=== PATIENT | female | born 1975 | race American Indian/Alaskan Native ===

== ENCOUNTER 2016-12-08 01:47 | Emergency (ER) | payer OTHER ==
[2016-12-08 02:23] VITALS: BMI 37.8
[2016-12-08 02:30] VITALS: O2SAT 99
--- NOTE | 2016-12-08 02:44 | ED PDOC ---
Arrival/HPI - General Chief Complaint: Abdominal Pain Time Seen by Provider: 12/08/16 02:40 Historian: Patient - History of Present Illness Narrative History of Present Illness (Text): 12/08/16 02:44 Jana Bethea is a 41 year old female who presents to the ED complaining of RLQ pain for 1 day. Patient states she has a history of ectopic in the past and notes she is currently . Patient denies any fever, chills, chest pain, shortness of breath, nausea, vomiting, diarrhea, urinary symptoms, back pain, neck pain, headache, dizziness, or any other complaints. Time/Duration: Other (tonight) Symptom Onset: Gradual Symptom Course: Unchanged Activities at Onset: Rest, Light Context: Home Past Medical History - Provider Review Nursing Documentation Reviewed: Yes - Infectious Disease Hx of Infectious Diseases: None - Tetanus Immunization Tetanus Immunization: Unknown - Cardiac Hx Hypertension: Yes - Pulmonary Hx Asthma: Yes - Neurological Hx Neurological Disorder: No - HEENT Hx HEENT Disorder: No - Renal Hx Renal Disorder: No - Endocrine/Metabolic Hx Endocrine Disorders: No - Hematological/Oncological Hx Blood Disorders: No - Integumentary Hx Dermatological Disorder: No - Musculoskeletal/Rheumatological Hx Musculoskeletal Disorders: No - Gastrointestinal Hx Gastrointestinal Disorders: No - Genitourinary/Gynecological Hx Genitourinary Disorders: No - Psychiatric Hx Depression: No Hx Emotional Abuse: No Hx Physical Abuse: No Hx Substance Use: No - Surgical History Hx Section: Yes Other/Comment: ectopic 2000 - Anesthesia Hx Anesthesia: Yes Hx Anesthesia Reactions: No Hx Malignant Hyperthermia: No - Suicidal Assessment Feels Threatened In Home Enviroment: No Family/Social History - Physician Review Nursing Documentation Reviewed: Yes Family/Social History: No Known Family HX Smoking Status: Current Some Days Smoker Hx Alcohol Use: No Hx Substance Use: No Hx Substance Use Treatment: No Allergies/Home Meds Allergies/Adverse Reactions: Allergies penicillin G Allergy (Verified 12/08/16 02:14) ANAPHYLAXIS season allergies Allergy (Mild, Uncoded 12/08/16 02:14) CONGESTION Home Medications: Home Meds Medication Instructions Recorded Confirmed Albuterol/Ipratropium [Combivent 1 puff INH PRN PRN 12/08/16 12/08/16 Respimat] Review of Systems - Physician Review All systems were reviewed & negative as marked: Yes - Review of Systems Constitutional: Normal. absent: Fevers Eyes: Normal ENT: Normal Respiratory: Normal. absent: SOB, Cough Cardiovascular: Chest Pain Gastrointestinal: Nausea, Vomiting. absent: Abdominal Pain, Diarrhea Genitourinary Female: Normal. absent: Dysuria, Frequency, Hematuria, Urine Output Changes Musculoskeletal: Normal. absent: Back Pain, Neck Pain Skin: Normal. absent: Rash Neurological: Normal. absent: Headache, Dizziness Endocrine: Normal Hemo/Lymphatic: Normal Psychiatric: Normal Physical Exam Vital Signs Reviewed: Yes Vital Signs Temp Pulse Resp BP Pulse Ox 12/08/16 04:34 98 F 78 18 121/70 99 12/08/16 02:27 98.5 F 95 H 16 111/76 99 Temperature: Afebrile Blood Pressure: Normal Pulse: Regular Respiratory Rate: Normal Appearance: Positive for: Well-Appearing, Non-Toxic, Comfortable Pain Distress: None Mental Status: Positive for: Alert and Oriented X 3 - Systems Exam Head: Present: Atraumatic, Normocephalic Pupils: Present: PERRL Extroacular Muscles: Present: EOMI Conjunctiva: Present: Normal Mouth: Present: Moist Mucous Membranes Neck: Present: Normal Range of Motion Respiratory/Chest: Present: Clear to Auscultation, Good Air Exchange. No: Respiratory Distress, Accessory Muscle Use Cardiovascular: Present: Regular Rate and Rhythm, Normal S1, S2. No: Murmurs Abdomen: Present: Normal Bowel Sounds. No: Tenderness, Distention, Peritoneal Signs Back: Present: Normal Inspection Upper Extremity: Present: Normal Inspection. No: Cyanosis, Edema Lower Extremity: Present: Normal Inspection. No: Edema Neurological: Present: GCS=15, CN II-XII Intact, Speech Normal Skin: Present: Warm, Dry, Normal Color. No: Rashes Psychiatric: Present: Alert, Oriented x 3, Normal Insight, Normal Concentration Medical Decision Making ED Course and Treatment: 12/08/16 02:44 Impression: 41 year old female complaining of RLQ pain tonight. Plan: -- Labs, beta-HCG, blood type and screen -- Urinalysis -- Transvaginal US -- Reassess and disposition Progress Notes: 12/08/16 04:28 Reviewed sono, Transvaginal US shows: Gestation: Questionable tiny saclike structure vs fluid about endometrium. No yolk sac. No pole. Uterus/cervix: Endometrium: 2.4 cm in thickness. Closed cervix. Ovaries: RIGHT ovary: 1.3 x 1.4 x 1.2 cm anechoic lesion. LEFT ovary: 2.2 x 2.5 x 1.4 cm anechoic lesion. No adnexal masses. Free fluid: No significant free fluid. IMPRESSION: 1. Sac without pole or yolk sac. DDX: Early IUP, blighted ovum, ectopic . 2. Ovarian cysts. 3. Incidental/non-acute findings are described above. 12/08/16 04:44 On re-evaluation, the patient feels better and is in no acute distress. I have discussed the results and plan with the patient, who expresses understanding. 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 Patient was instructed to follow up with OBGYN/clinic in 1-2 days or return if symptoms worsen or new concerning symptoms arise. 12/08/16 20:01 Re-evaluation Time: 05:02 Reassessment Condition: Re-examined, Improved - Lab Interpretations Lab Results: 12/08/16 03:20 12/08/16 03:20 Lab Results 12/08/16 03:20: WBC 10.4 D, RBC 4.21, Hgb 12.9, Hct 37.3, MCV 88.6, MCH 30.6, MCHC 34.6, RDW 12.6, Plt Count 344, MPV 9.5, Gran % 53.1, Lymph % (Auto) 37.4 H , Gonzales % (Auto) 6.4 H, Eos % (Auto) 2.7, Baso % (Auto) 0.4, Gran # 5.52, Lymph # 3.9 H, Gonzales # 0.7 H, Eos # 0.3, Baso # 0.04, PT 10.0, INR 0.93, APTT 29.8, Sodium 138, Potassium 3.1 L, Chloride 98, Carbon Dioxide 30, Anion Gap 13, BUN 8 , Creatinine 0.6, Est GFR ( Amer) > 60, Est GFR (Non-Af Amer) > 60, Random Glucose 125 H, Calcium 9.2, Total Bilirubin 0.4, AST 23, ALT 17, Alkaline Phosphatase 56, Total Protein 7.4, Albumin 3.9, Globulin 3.4, Albumin/ Globulin Ratio 1.1, Beta HCG, Quant 1176.90 H, Blood Type O NEGATIVE, Antibody Screen Negative, BBK History Checked No verified bt 12/08/16 02:45: Urine Color Yellow, Urine Appearance Clear, Urine pH 6.0, Ur Specific Sisters >= 1.030, Urine Protein Negative, Urine Glucose (UA) Negative, Urine Ketones Negative, Urine Blood Negative, Urine Nitrate Negative, Urine Bilirubin Negative, Urine Urobilinogen 1.0 H, Ur Leukocyte Esterase Negative, Urine HCG, Qual Positive I have reviewed the lab results: Yes - RAD Interpretation Radiology Orders: 12/08/16 02:48 TRANSVAGINAL [US] Stat - Scribe Statement The provider has reviewed the documentation as recorded by the Caroline Silver Provider Attestation: All medical record entries made by the Scribe were at my direction and personally dictated by me. I have reviewed the chart and agree that the record accurately reflects my personal performance of the history, physical exam, medical decision making, and the department course for this patient. I have also personally directed, reviewed, and agree with the discharge instructions and disposition. Disposition/Present on Arrival - Present on Arrival Any Indicators Present on Arrival: No History of DVT/PE: No History of Uncontrolled Diabetes: No Urinary Catheter: No History of Decub. Ulcer: No History Surgical Site Infection Following: None - Disposition Have Diagnosis and Disposition been Completed?: Yes Diagnosis: Ovarian cyst, Abdominal pain, Ectopic Disposition: HOME/ ROUTINE Disposition Time: 05:02 Condition: GOOD Discharge Instructions (ExitCare): Acute Abdominal Pain (ED), Ectopic (ED) Additional Instructions: follow up with your junior bookkeeper on friday or return to ed fro repeat beta and us Referrals: Mati Alvarez MD [Primary Care Provider] - Follow up with primary
[2016-12-08 03:08] LABS: URINE APPEARANCE CLEAR (CLEAR); URINE BILIRUBIN NEGATIVE (NEGATIVE); URINE BLOOD NEGATIVE (NEGATIVE); URINE COLOR YELLOW (YELLOW); URINE GLUCOSE (UA) NEGATIVE (NEGATIVE); URINE KETONE NEGATIVE (NEGATIVE); URINE LEUKOCYTE ESTERASE NEGATIVE Leu/uL (NEGATIVE); URINE PROTEIN NEGATIVE mg/dL (<30 mg/dL)
[2016-12-08 03:37] LABS: ADD MANUAL DIFF? NO
[2016-12-08 03:43] LABS: BASO # 0.04 K/mm3 (0.0-2.0); BASO % 0.4 % (0.0-3.0); EOS # 0.3 (0.0-0.7); EOS % 2.7 % (1.5-5.0); GRAN # 5.52 (1.4-6.5); GRAN % 53.1 % (50.0-68.0); HEMATOCRIT 37.3 % (36.0-48.0); LYMPH # 3.9 (1.2-3.4); LYMPH % 37.4 % (22.0-35.0); MEAN CELL VOLUME 88.6 fL (80.0-105.0); MEAN CORPUSCULAR HEMOGLOBIN 30.6 pg (25.0-35.0); MEAN CORPUSCULAR HGB CONC 34.6 g/dl (31.0-37.0); MEAN PLATELET VOLUME 9.5 fl (7.0-11.0); MONO # 0.7 (0.1-0.6); MONO % 6.4 % (1.0-6.0); PLATELET COUNT 344 10^3/uL (120.0-450.0); RED CELL DISTRIBUTION WIDTH 12.6 % (11.5-14.5); WHITE BLOOD COUNT 10.4 10^3/ul (4.5-11.0)
[2016-12-08 03:47] LABS: ALB/GLOB RATIO 1.1 (1.1-1.8); ALKALINE PHOSPHATASE 56 U/L (38-133); ALT/SGPT 17 U/L (7-56); AST/SGOT 23 U/L (15-39); BILIRUBIN,TOTAL 0.4 mg/dL (0.2-1.3); BLOOD UREA NITROGEN 8 mg/dL (7-21); CALCIUM 9.2 mg/dL (8.4-10.5); CARBON DIOXIDE 30 mmol/L (21-33); CHLORIDE 98 mmol/L (98-107); GFR AFRICAN-AMERICAN > 60; GLUCOSE,RANDOM 125 mg/dL (70-110); POTASSIUM 3.1 mmol/L (3.6-5.0); SODIUM 138 mmol/L (132-148); TOTAL PROTEIN 7.4 g/dL (5.8-8.3)
[2016-12-08 03:49] LABS: INR 0.93 (0.93-1.08); PARTIAL THROMBOPLASTIN TIME 29.8 Seconds (23.7-30.8)
--- NOTE | 2016-12-08 04:27 | US ---
EXAM: US First Trimester, Transabdominal CLINICAL HISTORY: 41 years old, female; Pain; Pelvic pain; Patient HX: Rlq pain/+ucg TECHNIQUE: Real-time transabdominal obstetrical ultrasound of the maternal pelvis and a first trimester with image documentation. COMPARISON: No relevant prior studies available. FINDINGS: Gestation: Questionable tiny saclike structure vs fluid about endometrium. No yolk sac. No pole. Uterus/cervix: Endometrium: 2.4 cm in thickness. Closed cervix. Ovaries: RIGHT ovary: 1.3 x 1.4 x 1.2 cm anechoic lesion. LEFT ovary: 2.2 x 2.5 x 1.4 cm anechoic lesion. No adnexal masses. Free fluid: No significant free fluid. IMPRESSION: 1. Sac without pole or yolk sac. DDX: Early IUP, blighted ovum, ectopic . 2. Ovarian cysts. 3. Incidental/non-acute findings are described above. EXAM: US , Transvaginal CLINICAL HISTORY: 41 years old, female; Pain; Pelvic pain; Patient HX: Rlq pain/+ucg TECHNIQUE: Real-time transvaginal obstetrical ultrasound of the maternal pelvis and a first trimester with image documentation. Transvaginal imaging was used for better evaluation of the fetus and adnexa. COMPARISON: No relevant prior studies available. FINDINGS: Gestation: Questionable tiny saclike structure vs fluid about endometrium. No yolk sac. No pole. Uterus/cervix: Endometrium: 2.4 cm in thickness. Closed cervix. Ovaries: RIGHT ovary: 1.3 x 1.4 x 1.2 cm anechoic lesion. LEFT ovary: 2.2 x 2.5 x 1.4 cm anechoic lesion. No adnexal masses. Free fluid: No significant free fluid. IMPRESSION: 1. Sac without pole or yolk sac. DDX: Early IUP, blighted ovum, ectopic . 2. Ovarian cysts. 3. Incidental/non-acute findings are described above. EXAM: US Abdomen Limited, Appendix CLINICAL HISTORY: 41 years old, female; Pain; Pelvic pain; Patient HX: Rlq pain/+ucg TECHNIQUE: Real-time ultrasound of the right lower quadrant with image documentation. COMPARISON: No relevant prior studies available. FINDINGS: Appendix: Not visualized. Free fluid: No free fluid. Lymph nodes: Small lymph nodes within RIGHT lower quadrant, largest measuring 1.6 x 1.1 cm. IMPRESSION: 1. Nonvisualization of appendix. 2. Incidental/non-acute findings are described above.
[2016-12-08 04:35] VITALS: BP 121/70; PULSE 78; RESP 18; TEMP 98
== END 2016-12-08 05:42 | disposition home or self-care (01) ==
LOC: ED 01:47
DX: O00.90 Unspecified ectopic pregnancy without intrauterine pregnancy (principal); N83.209 Unspecified ovarian cyst, unspecified side; I10 Essential (primary) hypertension

== ENCOUNTER 2017-10-15 12:08 | Emergency (ER) | payer OTHER ==
[2017-10-15 12:09] VITALS: BMI 37.8
[2017-10-15 12:27] VITALS: BP 119/74; PULSE 86; RESP 18; TEMP 98.4; O2SAT 98
--- NOTE | 2017-10-15 12:53 | ED PDOC ---
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 Patient stated as she was walking around a patient's bed, she stroke her anterior knee against an air mattress pump. Patient noted her knee is swollen, and pain has been increasingly worsen. Denies hip pain, or ankle pain. Time/Duration: Prior to Arrival Context: Home Past Medical History - Provider Review Nursing Documentation Reviewed: Yes - Infectious Disease Hx of Infectious Diseases: None - Tetanus Immunization Tetanus Immunization: Unknown - Reproductive Menopause: No - Cardiac Hx Hypertension: Yes - Pulmonary Hx Asthma: Yes - Neurological Hx Neurological Disorder: No - HEENT Hx HEENT Disorder: No - Renal Hx Renal Disorder: No - Endocrine/Metabolic Hx Endocrine Disorders: No - Hematological/Oncological Hx Blood Disorders: No - Integumentary Hx Dermatological Disorder: No - Musculoskeletal/Rheumatological Hx Musculoskeletal Disorders: No - Gastrointestinal Hx Gastrointestinal Disorders: No - Genitourinary/Gynecological Hx Genitourinary Disorders: No - Psychiatric Hx Depression: No Hx Emotional Abuse: No Hx Physical Abuse: No Hx Substance Use: No - Surgical History Hx Section: Yes Other/Comment: ectopic 2000 - Anesthesia Hx Anesthesia: Yes Hx Anesthesia Reactions: No Hx Malignant Hyperthermia: No - Suicidal Assessment Feels Threatened In Home Enviroment: No Family/Social History - Physician Review Nursing Documentation Reviewed: Yes Family/Social History: Other (noncontributory) Smoking Status: Current Some Days Smoker Hx Alcohol Use: No Hx Substance Use: No Hx Substance Use Treatment: No Allergies/Home Meds Allergies/Adverse Reactions: Allergies penicillin G Allergy (Verified 12/08/16 02:14) ANAPHYLAXIS season allergies Allergy (Mild, Uncoded 12/08/16 02:14) CONGESTION Home Medications: Home Meds Medication Instructions Recorded Confirmed Albuterol/Ipratropium [Combivent 1 puff INH PRN PRN 12/08/16 12/08/16 Respimat] Review of Systems - Review of Systems Constitutional: Normal. absent: Fatigue, Weight Change, Fevers Eyes: Normal ENT: Normal Respiratory: Normal Cardiovascular: Normal Gastrointestinal: Normal Genitourinary Female: Normal Musculoskeletal: Other (right knee pain and swelling) Skin: Normal Neurological: Normal Endocrine: Normal Hemo/Lymphatic: Normal Psychiatric: Normal Physical Exam Vital Signs Temp Pulse Resp BP Pulse Ox 10/15/17 12:23 98.4 F 86 18 119/74 98 Temperature: Afebrile Blood Pressure: Normal Pulse: Regular Respiratory Rate: Normal Appearance: Positive for: Well-Appearing, Non-Toxic, Comfortable Pain Distress: None Mental Status: Positive for: Alert and Oriented X 3 - Systems Exam Head: Present: Atraumatic, Normocephalic Pupils: Present: PERRL Extroacular Muscles: Present: EOMI Conjunctiva: Present: Normal Mouth: Present: Moist Mucous Membranes Neck: Present: Normal Range of Motion, Trachea Midline. No: Meningeal Signs, MIDLINE TENDERNESS, Paraspinal Tenderness, Lymphadenopathy Respiratory/Chest: Present: Clear to Auscultation, Good Air Exchange. No: Respiratory Distress, Accessory Muscle Use, Wheezes, Retracting, Rhonchi Cardiovascular: Present: Regular Rate and Rhythm, Normal S1, S2. No: Murmurs Abdomen: Present: Normal Bowel Sounds. No: Tenderness, Distention, Peritoneal Signs Back: Present: Normal Inspection. No: CVA Tenderness Upper Extremity: Present: Normal Inspection, Normal ROM. No: Cyanosis, Edema Lower Extremity: Present: NORMAL PULSES, Tenderness (mild tenderness right anterior knee), Swelling, Neurovascularly Intact, Capillary Refill < 2 s, Other (Anterior and postyerior knee drawer test were negative. No valgus or varus). No: Edema, CALF TENDERNESS, Cyanosis, Normal ROM (ROM is decreased due to pain) , Teresa's Sign, Erythema, Deformity, Temperature Abnormalties Neurological: Present: GCS=15, CN II-XII Intact, Speech Normal, Motor Func Grossly Intact, Normal Sensory Function, Normal Cerebellar Funct, Gait Normal Skin: Present: Warm, Dry, Normal Color. No: Rashes Psychiatric: Present: Alert, Oriented x 3, Normal Insight, Normal Concentration Medical Decision Making ED Course and Treatment: 10/15/17 14:13 Re-evaluation. Patient feels better. Discussed results and plan with patient who expresses understanding. All questions answered and there is agreement with the plan to discharge home with instructions. Patient stable for discharge. Return if symptoms persist or worsen. Patient was recommended to /u Employ Health Department for further medical evaluation. SILVERIO. To remove knee immobilizer at bedtime, or when her doctor recommends. Re-evaluation Time: 14:13 Reassessment Condition: Re-examined, Improved - RAD Interpretation Narrative RAD Interpretations (Text): 10/15/17 14:12 PROCEDURE: Right Knee Radiographs. HISTORY: pain s/p trauma COMPARISON: None. FINDINGS: BONES: No acute fracture. Proliferative hypertrophic changes emanating from the femoral condyle and tibial plateau regions. JOINTS: Medial compartment narrowing/ degenerative change. JOINT EFFUSION: None. OTHER FINDINGS: None. IMPRESSION: No acute findings related to/accounting for the clinical presentation. Radiology Orders: 10/15/17 12:47 KNEE W PATELLA RIGHT 3 VIEW [RAD] Stat - Medication Orders Current Medication Orders: Discontinued Medications Ketorolac Tromethamine (Toradol) 60 mg IM STAT STA Stop: 10/15/17 12:49 Last Admin: 10/15/17 13:14 Dose: 60 mg MAR Pain Assessment Document 10/15/17 13:14 SE (Rec: 10/15/17 13:14 [id number]) Pain Reassessment Is this a pain reassessment? No Sleep Is patient sleeping during reassessment? No Presence of Pain Presence of Pain Yes Pain Scale Used Pain Scale Used Numeric Location Left, Right or Bilateral Right Pain Location Body Site Knee IM Administration Charges Document 10/15/17 13:14 SE (Rec: 10/15/17 13:14 [id number]) Injection Site MAR Injection Site Right Vastus Lateralis Charges for Administration # of IM Administrations 1 Disposition/Present on Arrival - Present on Arrival Any Indicators Present on Arrival: No History of DVT/PE: No History of Uncontrolled Diabetes: No Urinary Catheter: No History of Decub. Ulcer: No History Surgical Site Infection Following: None - Disposition Have Diagnosis and Disposition been Completed?: Yes Diagnosis: Knee pain, right anterior Disposition: HOME/ ROUTINE Disposition Time: 14:14 Patient Plan: Discharge Condition: GOOD Discharge Instructions (ExitCare): Knee Pain (ED) Additional Instructions: [facility] Employee Regarding your Work Related Injury, you are instructed to do all of the following by next day: 1. Notify [facility] Employee Health Department of the sustained injury and arrange for any follow-up appointments if needed during the next business day. If the office is closed or no answer is received, please leave a detailed voice message. Message should include your full name, department and marketing account manager, date of injury, date of ED visit if applicable. Employee Health can be reached at [phone]. 2. If there is time lost, notify [facility] Human Resources Department of the work related injury the next business day at [phone]. Prescriptions: Famotidine [Pepcid] 40 mg PO DAILY #10 tablet Naproxen 500 mg PO BID PRN #14 tab PRN Reason: Pain, Severe (8-10) Forms: [facility] (Ecuadorean), WORK NOTE
--- NOTE | 2017-10-15 13:52 | RAD ---
PROCEDURE: Right Knee Radiographs. HISTORY: pain s/p trauma COMPARISON: None. FINDINGS: BONES: No acute fracture. Proliferative hypertrophic changes emanating from the femoral condyle and tibial plateau regions. JOINTS: Medial compartment narrowing/ degenerative change. JOINT EFFUSION: None. OTHER FINDINGS: None. IMPRESSION: No acute findings related to/accounting for the clinical presentation.
== END 2017-10-15 14:58 | disposition home or self-care (01) ==
LOC: ED 12:08
DX: M25.561 Pain in right knee (principal); I10 Essential (primary) hypertension
CPT/HCPCS: 29530; 73562; 81025; 96372; 99284; J1885